=== PATIENT | female | born 1950 | race Caucasian/White ===

== ENCOUNTER → 2020-11-16 | Outpatient (CLI) | payer MEDICARE, BC ==
[2020-11-16 19:05] LABS: HGB 11.7 g/dL (12.0-15.0); MCH 31.8 pg (27.0-32.0); MCHC 32.5 g/dL (32.0-37.0); MCV 97.8 fL (80.0-97.0); Mean Platelet Volume 9.2 fL (9.5-12.2); Platelet Count 445 X 10*3/uL (140-440); RBC 3.68 X 10*6/uL (4.10-5.20); RDW 12.4 % (11.5-14.5); WBC 5.58 X 10*3/uL (4.50-10.00)
== END | disposition home or self-care (01) ==
LOC: LABWHC1 12:43
PROVIDERS: ATTEND Orthopaedic Surgery
DX: E78.5 Hyperlipidemia, unspecified (principal); M16.12 Unilateral primary osteoarthritis, left hip; M17.12 Unilateral primary osteoarthritis, left knee
CPT/HCPCS: 36415; 85027; 87070

== ENCOUNTER → 2022-12-11 | Outpatient (CLI) | payer MEDICARE, BC ==
[2022-12-11 13:51] LABS: INR 0.9 (<1.2); Partial Thromboplastin Time 24.8 sec (22.0-30.0); Prothrombin Time 10.1 sec (9.0-12.0)
[2022-12-11 22:44] LABS: ALT 12 U/L (8-44); AST 13 U/L (13-35); Albumin 4.3 d/dL (3.8-4.9); Albumin/Globulin Ratio 1.72 Ratio (1.60-3.17); Alkaline Phosphatase 89 U/L (41-126); BUN/Creat Ratio 8.17 Ratio (12.00-20.00); Blood Urea Nitrogen 9.8 mg/dL (9.0-27.0); Calcium 9.8 mg/dL (8.7-10.3); Carbon Dioxide 25.6 mmol/L (21.6-31.8); Chloride 104 mmol/L (96-109); Globulin 2.5 d/dL (1.6-3.3); Glucose 80 mg/dL (70-110); Potassium 4.1 mmol/L (3.5-5.5); Sodium 140 mmol/L (135-145); Total Bilirubin 0.4 mg/dL (0.3-1.2); Total Protein 6.8 d/dL (6.2-8.2)
[2022-12-12 02:08] LABS: Appearance,Urine Clear (Clear); Bilirubin,Urine Negative (Negative); Blood,Urine Small (Negative); Color,Urine Yellow (Yellow); Ketones,Urine Negative (Negative); Nitrite,Urine Negative (Negative); PH, Urine 5.5; Specific Gravity,Urine 1.013 (1.001-1.030); Urobilinogen,Urine 0.2 E.U./DL
[2022-12-12 02:24] LABS: HCT 39.8 % (37.2-46.3); HGB 12.6 d/dL (12.0-15.0); MCH 32.1 pg (27.0-32.0); MCHC 31.7 d/dL (32.0-37.0); MCV 101.3 FL (80.0-97.0); Mean Platelet Volume 9.1 FL (9.5-12.2); NRBC Per 100 WBC 0 X 10*3/uL (0.00-0.01); Platelet Count 573 X 10*3/uL (140-440); RBC 3.93 X 10*6/uL (4.10-5.20); RDW 12.5 % (11.5-14.5); WBC 6.54 X 10*3/uL (4.50-10.00)
[2022-12-12 02:38] LABS: Bacteria,Urine None Seen (None Seen)
== END | disposition home or self-care (01) ==
LOC: LABPAT 11:06
PROVIDERS: ATTEND Orthopaedic Surgery
DX: Z01.818 Encounter for other preprocedural examination (principal); M16.12 Unilateral primary osteoarthritis, left hip
CPT/HCPCS: 36415; 80053; 81001; 85027; 85610; 85730; 87070; 93005

== ENCOUNTER 2022-12-18 05:39 | Day surgery (SDC) | payer MEDICARE, BC ==
[2022-12-13 09:18] VITALS: BMI 29.0
[~2022-12-18 05:39] MED LIST: ACETAMINOPHEN TAB 500 MG TAB PO PRN; GABAPENTIN 300 MG CAP PO PRN; MELOXICAM 7.5 MG TAB PO PRN; TRANEXAMIC 1,000 MG/100ML-NACL 1,000 MG in SALINE 1 100ML.BAG IVPB PRN
[2022-12-18] MEDS ORDERED: LIDOCAINE 1% (10MG/ML) FOR IV START INTRADERMA PRN (05:47)
[2022-12-18] MEDS ORDERED: ONDANSETRON 4 MG/2 ML VIAL IVP ONE (05:47)
[2022-12-18] MEDS: LACTATED RINGERS 1,000 ML IV SCH (06:32)
[2022-12-18] MEDS ORDERED: MIDAZOLAM 2 MG/2 ML VIAL IV ONE (06:46)
[2022-12-18] MEDS ORDERED: fentaNYL (PF) 50 MCG/ML 2 ML AMP IV ONE (06:46)
[2022-12-18] MEDS ORDERED: ROPIVACAINE 5 MG/ML 30 ML VIAL ONE (06:58)
[2022-12-18] MEDS ORDERED: ROCURONIUM 10 MG/ML (5 ML VIAL) IV ONE (06:58)
[2022-12-18] MEDS ORDERED: TRANEXAMIC 1,000 MG/100ML-NACL PREMIX BAG ONE (06:58)
[2022-12-18] MEDS ORDERED: SUCCINYLCHOLINE CHLORIDE 200 MG/10 ML VIAL IV ONE (06:58)
[2022-12-18] MEDS ORDERED: NEOSTIGMINE 1 MG/ML 10 ML VIAL ONE (06:58)
[2022-12-18] MEDS ORDERED: PROPOFOL 10 MG/ML 20 ML VIAL IV ONE (06:58)
[2022-12-18] MEDS ORDERED: LIDOCAINE 2% INJ 20 MG/ML (2 ML VIAL) ONE (06:58)
[2022-12-18] MEDS ORDERED: fentaNYL (PF) 50 MCG/ML 2 ML AMP ONE (06:58)
[2022-12-18] MEDS ORDERED: PHENYLEPHRINE-0.9% NACL SYG 1,000 MCG/10 ML SYRINGE ONE (06:58)
[2022-12-18] MEDS ORDERED: HYDROmorphone (PF) 1 MG/ML ONE (06:58)
[2022-12-18] MEDS ORDERED: GLYCOPYRROLATE 0.2 MG/ML 2 ML VIAL ONE (06:58)
[2022-12-18] MEDS ORDERED: ceFAZolin 1,000 MG in SODIUM CHLORIDE 0.9% 1,000 ML IRRIGATION ONE (07:00)
[2022-12-18] MEDS ORDERED: ROPIVACAINE 5 MG/ML 30 ML VIAL MISCELLANE ONE ×2 (07:07→08:21)
--- NOTE | 2022-12-18 08:28 | P.OP ---
Date of Procedure: 12/18/22 Preoperative Diagnosis: Severe osteoarthritis left hip Postoperative Diagnosis: Severe osteoarthritis left hip Procedure(s) Performed: Left total arthroplasty with a direct anterior approach Implants: [employer] Polarstem standard size 7 with a collar [employer] R3, 3 hole hemispherical acetabular shell, 54 mm [employer] Reflection 6.5 mm cancellus screw, 20 mm, 25 mm [employer] R3, XLPE 20 acetabular liner [employer] Oxinium femoral head 36 m, +4 All components were press-fit. Montage bone graft The articulation is Oxinium on polyethylene. Anesthesia: GETA Surgeon: Tremaine Trent Butadiene Converter Utility Operator #1: Deidre Stern Estimated Blood Loss (ml): 400 Pathology: none sent Condition: stable Disposition: PACU Indications for Procedure: After failure of conservative treatment we discussed the surgical and nonsurgical treatment options at length. Patient wishes to proceed with a total hip arthroplasty with a direct anterior approach. Complications specific to this procedure were discussed at length, including but not limited to infection, leg length discrepancy, dislocation, nerve injury, and fracture. Covid-19 was also discussed at length with the patient, and they are aware of the current policies and procedures. The patient was given the option of delaying surgery, but they elect to proceed knowing these risks. Patient is aware of all these complications and informed consent was obtained Operative Findings: The operative findings are consistent with severe osteoarthritis of the left hip Description of Procedure: The patient was seen and evaluated in the preoperative area and the consent was reviewed. The operative site was marked with a skin marker. The patient verified the procedure and operative site. A CLEMENTE block was placed by anesthesia in the preoperative area. The patient was then brought to the operating room and given preoperative antibiotics intravenously. 1 g of Tranexamic acid was also given intravenously. A general anesthetic was administered by the anesthesia department. The patient was then placed on the [place] table with the bony prominences well-padded. The hip area was then prepped with a ChloraPrep solution and draped in the usual sterile fashion. A universal timeout was then performed, which confirmed the patient's name, surgical site, ALLERGIES, and procedure being performed on the consent. Next the incision site was located at 1 cm distal and 4 cm lateral to the anterior superior iliac spine. The skin and subcutaneous tissues were sharply incised. Incision was carefully dissected down to the fascia overlying the tensor fascia jevon muscle. This fascia was then incised in line with the muscle fibers. Care was taken to stay laterally in order to avoid injuring the lateral femoral cutaneous nerve. Next, using blunt finger dissection, the tensor fascia jevon muscle was dissected off its investing fascia. The muscle was then carefully retracted laterally with a cobra retractor over the lateral neck of the femur. Next, the circumflex vessels were identified and cauterized using the Aquamantis device. The anterior hip capsule was then exposed. The capsule was then opened and an inverted T fashion. The retractors were then placed intracapsularly. The retractors were maintained intracapsular throughout the procedure. The proximal femur was then visualized. Fluoroscopic x-rays were then taken in order to evaluate the preoperative leg lengths. A small amount of traction was placed on the leg. The femoral neck was then osteotomized at the appropriate level above the lesser trochanter. A small wedge of bone was then removed from the remaining femoral head. Next, using a corkscrew the femoral head was removed from the acetabulum. On gross visual inspection, the femoral head had complete loss of articular cartilage and multiple periarticular osteophytes. The femoral head was then measured. Attention was then turned to the acetabulum. The acetabulum was exposed and any remaining labrum was excised. Sequential reaming of the acetabulum was performed using fluoroscopic guidance until there was a good bed of bleeding cancellus bone. When the appropriate size was reached, a trial was then placed. The position and fit of the trial was checked with fluoroscopy. The trial was then removed. Then, using fluoroscopic guidance, the final implant was impacted at 20 of anteversion and 40 of abduction, and fully seated in the acetabulum. 2 screws were then placed in the acetabulum. Again fluoroscopy was used to check position of the screws. Next, the liner was then impacted, with a 20 elevated liner located in the anterior superior quadrant. Component locking was confirmed. Attention was then directed to the femur. With the aid of the [place] table, the femur was externally rotated to approximately 130, extended, and adducted under the opposite leg. A side hook was then placed under the proximal femur, and the side hook elevator was used to elevate the proximal femur while releasing the capsule. Retractors were then placed. A capsular release was performed, as well as a release of the conjoined tendon, which afforded excellent visualization of the proximal femur. Next, a box osteotome was used to lateralize the proximal femur. A hand alterations tailor was then used to locate the femoral canal. Sequential broaching was then performed with appropriate size which afforded excellent fixation in the proximal femur. A trial was then placed with appropriate head and neck, and the hip was gently reduced with the aid of the [place] table. Fluoroscopy was then used to check position of the components, as well as to evaluate the leg lengths and offset. The leg lengths and offset were measured as closely as possible to ensure stability of the hip. The hip was then gently dislocated and the trials were then removed. Final implants were then impacted. Montage bone graft substitute was used proximally in order to fill a large void from broaching the proximal femur due to the patient's size. The hip was again reduced. Final fluoroscopic x-rays confirmed that the components were in anatomic position. The leg lengths and offset were measured and were found to coincide with the trial measurements. The hip was also taken through range of motion, and found to be stable. The hip was then copiously irrigated with antibiotic solution with pulsatile lavage. The hip was then irrigated with Irrisept solution. The soft tissues were then injected with a ropivacaine solution. A second dose of 1 g of Tranexamic acid was also given intravenously. The fascia was then closed with 2-0 strata fix suture. The subcutaneous tissue was closed with 3-0 Vicryl. The subcuticular tissue was closed with 3-0 strata fix suture. The skin was then closed with Exofin skin glue. After the glue and dried, and Optifoam silver impregnated dressing was applied. The patient was then transferred to the recovery room in stable condition. The junior assistant manager SHASHANK Gill was required due to the complexity of surgery, and the need for skilled surgical specialist for positioning, draping, exposure, retraction, and closure of the wound.
[2022-12-18] MEDS ORDERED: LACTATED RINGERS 1,000 ML IV ONE (08:32)
[2022-12-18] MEDS ORDERED: MAGNESIUM HYDROXIDE 2,400 MG/10 ML CUP PO PRN (08:46)
[2022-12-18] MEDS ORDERED: ONDANSETRON 4 MG/2 ML VIAL IVP PRN (08:46)
[2022-12-18] MEDS ORDERED: NALOXONE 0.4 MG/ML 1 ML VIAL IV PRN (08:46)
[2022-12-18] MEDS ORDERED: HYDROmorphone 0.5 MG/0.5 ML SYRINGE IVP PRN ×2 (08:46)
[2022-12-18] MEDS ORDERED: HYDROcodone/APAP 7.5-325MG 1 EACH TAB PO PRN (08:49)
--- NOTE | 2022-12-18 08:52 | FL ---
Intraoperative/procedural fluoroscopic services were provided. Total fluoroscopy time is 30.7 seconds with a total of 3 submitted images to PACS. Please see the operative/procedural note for further det ails. DAP: 2.9078 mGym2
--- NOTE | 2022-12-18 09:14 | P.ANPRN ---
Procedure Note - Anesthesia - Nerve Block Performed Left Kunal Time Out Performed: Yes (:46) Date of Procedure: 12/18/22 Procedure Start Time: Procedure Stop Time: :50 Location of Patient: PreOp Indication: Requested by Surgeon (Tremaine Trent) Sedation Type: Sedate with meaningful contact maintained Preparation: Sterile Prep Position: Supine Catheter: None Needle Types: Pajunk Needle Gauge: 21 Ultrasound used to visualize needle placement: Yes Ultrasound used to observe medication spread: Yes Injectate: 0.5% Ropivacaine (see comment for volume) (20cc +5cc PF Normal saline) Blood Aspirated: No Pain Paresthesia on Injection Noted: No Resistance on Injection: Normal Image Stored and Saved: Yes Events: Uneventful and Well Tolerated
--- NOTE | 2022-12-18 09:18 | XR ---
EXAMINATION TYPE: XR Hip Limited LT DATE OF EXAM: 12/18/2022 9:07 AM INDICATION: Patient age:Female; 72 years old; Reason for study: Status post hip surgery, assess surgical alignment; . COMPARISON: None. TECHNIQUE: The left hip was examined in the frontal projection. FINDINGS: Post arthroplasty changes, hardware is intact, alignment is appropriate. No evidence of fra cture. Postoperative changes of the soft tissues with subcutaneous gas. No evidence of any acute osse ous pathology or joint dislocation. IMPRESSION: Hip arthroplasty with hardware intact and in appropriate alignment. No acute fracture.
[2022-12-18] MEDS: HYDROmorphone 0.5 MG/0.5 ML SYRINGE IVP PRN ×3 (09:45→17:05)
[2022-12-18] MEDS ORDERED: SODIUM CHLORIDE 0.9% 1,000 ML IV ONE (12:01)
[2022-12-18] MEDS ORDERED: ALBUTEROL HFA INHALER INHALATION PRN (13:01)
[2022-12-18] MEDS ORDERED: CYCLOBENZAPRINE 5 MG TAB PO PRN (13:01)
[2022-12-18] MEDS: TROSPIUM CHLORIDE 20 MG TABLET PO SCH (14:22)
[2022-12-18] MEDS: PANTOPRAZOLE 40 MG TABLET PO SCH (14:22)
[2022-12-18] MEDS: SODIUM CHLORIDE 0.9% 1,000 ML IV SCH ×2 (14:59→23:58)
[2022-12-18] MEDS ORDERED: MAGNESIUM HYDROXIDE 2,400 MG/30 ML CUP PO PRN (16:10)
[2022-12-18 16:50] LABS: Basophils % (A) 0 %; Eosinophils % (A) 0 %; HCT 30.7 % (34.0-46.0); HGB 10.1 gm/dL (11.4-16.0); Lymphocytes # (A) 0.4 k/uL (1.0-4.8); Lymphocytes % (A) 5 %; MCH 32.4 pg (25.0-35.0); MCHC 32.9 g/dL (31.0-37.0); MCV 98.4 fL (80.0-100.0); Mean Platelet Volume 7.8; Monocytes # (A) 0.6 k/uL (0-1.0); Monocytes % (A) 6 %; Neutrophils # (A) 8.1 k/uL (1.3-7.7); Neutrophils % (A) 89 %; Platelet Count 406 k/uL (150-450); RBC 3.12 m/uL (3.80-5.40); RDW 12.4 % (11.5-15.5); WBC 9.1 k/uL (3.8-10.6)
[2022-12-18 16:56] LABS: ALT 17 U/L (4-34); AST 24 U/L (14-36); African American GFR (CKD) 64 (>60 ml/min/1.73 sqM); Albumin 3.2 g/dL (3.5-5.0); Albumin/Globulin Ratio 1.3; Alkaline Phosphatase 65 U/L (38-126); Anion Gap 7 mmol/L; Blood Urea Nitrogen 12 mg/dL (7-17); Calcium 8.3 mg/dL (8.4-10.2); Carbon Dioxide 25 mmol/L (22-30); Chloride 105 mmol/L (98-107); Globulin 2.5 g/dL; Glucose 120 mg/dL (74-99); Non-African American GFR(CKD) 56 (>60 ml/min/1.73 sqM); Potassium 3.9 mmol/L (3.5-5.1); Sodium 137 mmol/L (137-145); Total Bilirubin 0.7 mg/dL (0.2-1.3); Total Protein 5.7 g/dL (6.3-8.2)
[2022-12-18] MEDS: ASPIRIN 325 MG TAB PO SCH (20:10)
[2022-12-18] MEDS: HYDROcodone/APAP 7.5-325MG 1 EACH TAB PO PRN (20:11)
[2022-12-18] MEDS ORDERED: SENNOSIDES-DOCUSATE SODIUM 1 EACH TAB PO SCH (21:00)
[2022-12-19] MEDS: HYDROcodone/APAP 7.5-325MG 1 EACH TAB PO PRN ×3 (02:02→18:59)
--- NOTE | 2022-12-19 02:52 | CONS ---
CONSULTATION REASON FOR CONSULTATION: Advice regarding DJD and other medical issues, requested by [facility]. HISTORY OF PRESENT ILLNESS: This 72-year-old woman with a past medical history significant for DJD and other medical issues underwent left total knee joint arthroplasty for severe DJD. There is no history of any fever, rigors, or chills. No headache, loss of consciousness, or seizure. The patient is rather drowsy after surgery. PAST MEDICAL HISTORY: History of DJD, history of GERD. Rest of the history and rest of the chart are also reviewed. HOME MEDICATIONS: Reviewed and include Flexeril, doses and rest of medication noted. ALLERGIES: None. FAMILY HISTORY: Kidney and liver metastasis. SOCIAL HISTORY: Previous smoker. REVIEW OF SYSTEMS: Could not be taken as the patient is slightly drowsy. PHYSICAL EXAMINATION: VITAL SIGNS: Pulse N, blood pressure 126/70, respirations 15. HEENT: Conjunctivae normal. NECK: No jugular venous distention. CARDIOVASCULAR: S1, S2 muffled. RESPIRATORY: Breath sounds diminished at the bases. Clear to auscultation. ABDOMEN: Soft, nontender. LEGS: Status post surgery. NERVOUS SYTEM: Nonfocal LABORATORY DATA: Reviewed. ASSESSMENT: 1. Status post left total hip joint arthroplasty. 2. Bradycardia. 3. History of degenerative joint disease. 4. History of stress incontinence. 5. History of nicotine dependence. RECOMMENDATIONS: This 72-year-old woman presented after surgery. At this time, I recommend baseline labs as well as an EKG and troponin. Otherwise, the patient is rather drowsy from the surgery. We will monitor the patient closely. DVT prophylaxis. Incentive spirometer. We will follow the patient closely with you, and further recommendations to follow. MMODL / IJN: [id number] / TRINA
[2022-12-19] MEDS: SODIUM CHLORIDE 0.9% 1,000 ML IV SCH (03:23)
[2022-12-19] MEDS: LACTATED RINGERS 1,000 ML IV SCH (03:39)
[2022-12-19] MEDS: HYDROmorphone 0.5 MG/0.5 ML SYRINGE IVP PRN (04:21)
[2022-12-19] MEDS: PANTOPRAZOLE 40 MG TABLET PO SCH (06:31)
[2022-12-19] MEDS: ASPIRIN 325 MG TAB PO SCH (08:32)
[2022-12-19] MEDS: TROSPIUM CHLORIDE 20 MG TABLET PO SCH (08:33)
--- NOTE | 2022-12-19 08:56 | P.DS ---
Providers Date of admission: 12/18/22 08:45 Expected date of discharge: 12/19/22 Attending physician: Tremaine Trent Consults: 12/18/22 08:46 Consult Physician Routine Consulting Provider: Ernestina Gabriel Consult Reason/Comments: medical management Do you want consulting provider notified?: Yes Primary care physician: Moustapha Galvan - Discharge Diagnosis(es) (1) S/P total hip arthroplasty Current Visit: Yes Status: Acute (2) Osteoarthritis of left hip Current Visit: Yes Status: Acute Hospital Course: This is a 72-year-old female with known history of degenerative arthritis of the left hip. The patient presented for evaluation as an outpatient. After discussion and consideration patient elects to proceed with total hip arthroplasty. The patient is seen preoperatively by Dr. Trent and medically cleared for surgery by their primary care physician. Patient is admitted to [facility] on 12/18/2022 for total hip arthroplasty. The procedure is performed without complication or sequelae. The patient is doing well postoperatively. Labs and vital signs are stable on day of discharge. On day of discharge patient's hip incision is healing well. There is minimal erythema. There is no drainage noted at this time. There is minimal soft tissue swelling to the hip and thigh. Patient has full foot and ankle motion without difficulty or pain. Calf is soft and nontender to palpation. Neurovascular status to the left lower extremity is intact. Patient is discharged home in good condition. Please see med rec for accurate list of home medications. Plan - Discharge Summary Discharge Rx Participant: No New Discharge Prescriptions: New Aspirin 325 mg PO BID #60 tab Sennosides [Senokot] 2 tab PO DAILY PRN #60 tablet PRN Reason: Constipation HYDROcodone/APAP 7.5-325MG [[place] 7.5-325] 1 - 2 tab PO Q6H PRN #32 tab PRN Reason: Pain No Action Cholecalciferol [Vitamin D3 (25 Mcg = 1000 Iu)] 25 mcg PO DAILY Trospium Chloride [Sanctura] 40 mg PO QAM Cyclobenzaprine HCl 5 mg PO TID PRN PRN Reason: Pain Acetaminophen Tab [Tylenol Tab] 1,000 mg PO Q6HR PRN PRN Reason: Pain Equate Alg Otc 25 mg PO DAILY PRN PRN Reason: Allergy Symptoms Ferrous Sulfate [Iron] 325 mg PO DAILY Omeprazole [PriLOSEC] 20 mg PO AC-BRKFST Aspirin 81 mg PO DAILY Cyanocobalamin (Vitamin B-12) [Vitamin B-12] 2,500 mcg PO DAILY Albuterol Sulfate [Ventolin HFA] 2 puff INHALATION Q6H PRN PRN Reason: sob Discharge Medication List Acetaminophen Tab [Tylenol Tab] 1,000 mg PO Q6HR PRN 12/13/22 [History] Albuterol Sulfate [Ventolin HFA] 2 puff INHALATION Q6H PRN 12/13/22 [History] Aspirin 81 mg PO DAILY 12/13/22 [History] Cholecalciferol [Vitamin D3 (25 Mcg = 1000 Iu)] 25 mcg PO DAILY 12/13/22 [History] Cyanocobalamin (Vitamin B-12) [Vitamin B-12] 2,500 mcg PO DAILY 12/13/22 [History] Cyclobenzaprine HCl 5 mg PO TID PRN 12/13/22 [History] Equate Alg Otc 25 mg PO DAILY PRN 12/13/22 [History] Ferrous Sulfate [Iron] 325 mg PO DAILY 12/13/22 [History] Omeprazole [PriLOSEC] 20 mg PO AC-BRKFST 12/13/22 [History] Trospium Chloride [Sanctura] 40 mg PO QAM 12/13/22 [History] Aspirin 325 mg PO BID #60 tab 12/18/22 [Rx] Sennosides [Senokot] 2 tab PO DAILY PRN #60 tablet 12/18/22 [Rx] HYDROcodone/APAP 7.5-325MG [[place] 7.5-325] 1 - 2 tab PO Q6H PRN #32 tab 12/19/22 [Rx] Follow up Appointment(s)/Referral(s): Tremaine Trent DO [Doctor of Osteopathic Medicine] - 2 Weeks Activity/Diet/Wound Care/Special Instructions: Weightbearing as tolerated with walker. Leave dressing intact. Dressing may be removed by home care nurse or by patient in 7 days. Then change dressing twice daily until follow up. May shower with initial dressing intact and after removal. If dressing become saturated, please remove. Please take aspirin 325mg twice daily for 30 days to prevent blood clots. Recommend use of compression stockings daily until follow up to help prevent swelling and blood clots. May remove at night before sleeping. Please follow[facility]up with [facility] in 2 weeks and call with any questions or concerns, . Discharge Disposition: HOME WITH HOME HEALTH SERVICES
[2022-12-19] MEDS ORDERED: FERROUS SULFATE 325 MG TAB PO SCH (09:00)
[2022-12-19] MEDS ORDERED: CYANOCOBALAMIN 500 MCG TAB PO SCH (09:00)
[2022-12-19] MEDS ORDERED: CHOLECALCIFEROL 25 MCG (1000 IU) TABLET PO SCH (09:00)
[2022-12-19 11:42] LABS: Basophils # (A) 0 X 10*3/uL (0.00-0.10); Basophils % (A) 0 %; Eosinophils # (A) 0.02 X 10*3/uL (0.04-0.35); Eosinophils % (A) 0.3 %; HCT 25.7 % (37.2-46.3); HGB 8.6 d/dL (12.0-15.0); Lymphocytes # (A) 0.72 X 10*3/uL (0.90-5.00); Lymphocytes % (A) 11.2 %; MCH 32.6 pg (27.0-32.0); MCHC 33.5 d/dL (32.0-37.0); MCV 97.3 FL (80.0-97.0); Mean Platelet Volume 8.9 FL (9.5-12.2); Monocytes # (A) 0.85 X 10*3/uL (0.20-1.00); Monocytes % (A) 13.2 %; NRBC Per 100 WBC 0 X 10*3/uL (0.00-0.01); Neutrophils # (A) 4.84 X 10*3/uL (1.80-7.70); Platelet Count 343 X 10*3/uL (140-440); RBC 2.64 X 10*6/uL (4.10-5.20); RDW 12.5 % (11.5-14.5); WBC 6.45 X 10*3/uL (4.50-10.00)
[2022-12-19] MEDS ORDERED: TAMSULOSIN 0.4 MG CAP.ER.24H PO SCH (12:00)
[2022-12-19 12:14] LABS: ALT 13 U/L (4-34); AST 26 U/L (14-36); African American GFR (CKD) 58 (>60 ml/min/1.73 sqM); Albumin 2.8 g/dL (3.5-5.0); Albumin/Globulin Ratio 1.2; Alkaline Phosphatase 57 U/L (38-126); Anion Gap 5 mmol/L; Blood Urea Nitrogen 13 mg/dL (7-17); Calcium 7.7 mg/dL (8.4-10.2); Carbon Dioxide 25 mmol/L (22-30); Chloride 102 mmol/L (98-107); Globulin 2.3 g/dL; Glucose 100 mg/dL (74-99); Non-African American GFR(CKD) 50 (>60 ml/min/1.73 sqM); Potassium 3.8 mmol/L (3.5-5.1); Sodium 132 mmol/L (137-145); Total Bilirubin 0.8 mg/dL (0.2-1.3); Total Protein 5.1 g/dL (6.3-8.2)
--- NOTE | 2022-12-19 12:25 | PN ---
PROGRESS NOTE DATE OF SERVICE: 12/19/2022 SUBJECTIVE: This is a 72-year-old woman who was admitted after left total hip joint arthroplasty. She is improving significantly. No chest pain, no palpitations, no fever. The patient has diminished urine output. OBJECTIVE: VITAL SIGNS: Pulse is 76, blood pressure 93/59, respirations 18. HEENT: Oral mucosa dry. CHEST: Clear to auscultation. CARDIOVASCULAR: S1, S2. ABDOMEN: Soft. LABORATORY DATA: Hemoglobin 8.6. Creatinine was normal. Latest creatinine is pending. ASSESSMENT: 1. Status post left total hip joint arthroplasty. 2. Bradycardia. 3. History of DJD. 4. History of stress incontinence. 5. History of nicotine dependence. 6. Some dehydration. RECOMMENDATIONS AND DISCUSSION: Recommended to continue current management, continue symptomatic treatment, otherwise closely monitor, closely follow with Orthopedic Surgery. EKG did not show any acute abnormality. Further recommendations to follow. MMODL / IJN: [id number] /
[2022-12-19 14:07] VITALS: BP 95/58; PULSE 78; RESP 18; TEMP 98
== END 2022-12-19 20:26 | disposition home health service (06) ==
LOC: OR 05:39 → UNDOADMOB 08:45 → 4SSUR 08:45 → OR 12-19 20:26 → UNDODISOB 12-19 20:26
PROVIDERS: ATTEND Orthopaedic Surgery
DX: M16.12 Unilateral primary osteoarthritis, left hip (principal); M25.752 Osteophyte, left hip; R00.1 Bradycardia, unspecified; E86.0 Dehydration; K21.9 Gastro-esophageal reflux disease without esophagitis; Z96.652 Presence of left artificial knee joint; Z87.891 Personal history of nicotine dependence; Z79.82 Long term (current) use of aspirin; Z79.899 Other long term (current) drug therapy
CPT/HCPCS: 93005; 97161; 97166; 86900; 86901; 80053 ×2; 84484; 85025 ×2; 86850; 73501; 27130; J2250; J0690 ×2; J2405; J3010; J2795; J1170 ×2; 64447